=== PATIENT | female | born 1965 | race African-American/Black ===

== ENCOUNTER 2023-01-07 14:50 | Emergency (ER) | payer OTHER, MEDICAID ==
[~2023-01-07] VITALS: Ht 165.1 cm; Wt 65.9 kg
[2023-01-07 15:27] LABS: BASOPHILS % 0.7 % (0.0-2.0); EOSINOPHILS % 1.6 % (0.0-5.0); HEMATOCRIT. 37.6 % (36.0-48.0); HEMOGLOBIN. 12.8 g/dL (12.0-16.0); MEAN CORPUSCULAR VOLUME 88.3 fL (81.0-99.0); MEAN PLATELET VOLUME 8.6 fl (7.4-10.4); MONOCYTES % 5.9 % (2.0-8.0); NEUTROPHILS % 63.8 % (40.0-76.0); PLATELET 286 x1000/uL (130-400); RED BLOOD CELL COUNT 4.26 mill/uL (4.2-5.4); RED CELL DISTRIBUTION WIDTH 15.2 % (11.6-14.6)
[2023-01-07 15:31] LABS: CHLORIDE 103 mEq/L (98-107)
[2023-01-07] MEDS ORDERED: VISCOUS LIDOCAINE 2% 15 ML UDC PO STA (15:58)
[2023-01-07] MEDS ORDERED: DICYCLOMINE 10 MG/5 ML ORAL SYR PO STA (15:58)
[2023-01-07] MEDS ORDERED: ACETAMINOPHEN 325MG TABLET PO STA (15:58)
[2023-01-07] MEDS ORDERED: MAGNESIUM/ALUMINUM HYDROXIDE/SIMETHICONE 30ML UDC PO STA (15:58)
[2023-01-07 16:00] LABS: CLARITY URINE CLEAR (CLEAR); COLOR URINE YELLOW (YELLOW); KETONES URINE NEGATIVE (NEGATIVE); LEUKOCYTE ESTERASE URINE TRACE (NEGATIVE); NITRITE URINE NEGATIVE (NEGATIVE); OCCULT BLOOD URINE 1+ (NEGATIVE); PROTEIN URINE 2+ (NEGATIVE); SPECIFIC GRAVITY URINE 1.009 (1.005-1.030); UROBILINOGEN URINE 0.2 E.U./dL (0.2-1.0)
[2023-01-07 16:16] LABS: ETHANOL BLOOD < 10 mg/dL
[2023-01-07 19:10] LABS: *AMPHETAMINES SCREEN URINE NEGATIVE (NEGATIVE); *BARBITURATES SCREEN URINE NEGATIVE (NEGATIVE); *BENZODIAZEPINES SCREEN URINE NEGATIVE (NEGATIVE); *COCAINE SCREEN URINE NEGATIVE (NEGATIVE); CANNABINOID URINE SCREEN NEGATIVE (NEGATIVE); METHADONE URINE SCREEN NEGATIVE (NEGATIVE); OPIATES URINE SCREEN NEGATIVE (NEGATIVE); PHENCYCLIDINE URINE SCREEN NEGATIVE (NEGATIVE)
[2023-01-07] MEDS ORDERED: TOPUD MT (20:20)
[2023-01-07 20:46] VITALS: BP 152/93
== END 2023-01-07 20:47 | disposition home or self-care (01) ==
LOC: ER 14:50
DX: R07.89 Other chest pain (principal); E11.9 Type 2 diabetes mellitus without complications; I10 Essential (primary) hypertension; Z88.6 Allergy status to analgesic agent; Z98.890 Other specified postprocedural states
CPT/HCPCS: 36415; 71045; 80053; 80305; 80320; 81003; 84484; 85025; 93005; 99285; G0480

== ENCOUNTER 2023-01-20 04:55 | Emergency (ER) | payer OTHER, MEDICAID ==
[~2023-01-20] VITALS: Ht 165.1 cm; Wt 72.0 kg
[~2023-01-20 04:55] MED LIST: TOPUD MT
[2023-01-20 05:08] VITALS: BP 187/108
[2023-01-20] MEDS ORDERED: CYCL10TA21 MT (05:24)
[2023-01-20] MEDS ORDERED: TOPUD MT (05:24)
[2023-01-20] MEDS ORDERED: ACETAMINOPHEN 325MG TABLET PO ONE (05:30)
== END 2023-01-20 05:50 | disposition home or self-care (01) ==
LOC: ER 04:55
DX: M62.838 Other muscle spasm (principal); I10 Essential (primary) hypertension; E11.9 Type 2 diabetes mellitus without complications; Z88.6 Allergy status to analgesic agent; Z98.890 Other specified postprocedural states
CPT/HCPCS: 99282